=== PATIENT | female | born 1995 | race Caucasian/White ===

== ENCOUNTER 2016-08-06 21:34 | Inpatient (IN) | payer OTHER ==
[~2016-08-06] VITALS: Ht 154.9 cm; Wt 53.0 kg
[2016-08-06 22:06] LABS: BASOPHILS # (AUTO) 0.08 K/uL (0.00-0.20); BASOPHILS % (AUTO) 0.5 % (0.0-2.0); EOSINOPHILS # (AUTO) 0.06 K/uL (0.00-0.70); EOSINOPHILS % (AUTO) 0.33 % (1.0-6.0); HEMATOCRIT 39.4 % (36-46); LYMPHOCYTES # (AUTO) 3.9 K/uL (1.0-4.8); LYMPHOCYTES % (AUTO) 21.7 % (22.0-44.0); MEAN CORPUSCULAR HEMOGLOBIN 29.5 pg (26.0-34.0); MEAN CORPUSCULAR HGB CONC 32.9 G/dL (31.0-37.0); MEAN CORPUSCULAR VOLUME 90 fL (80-100); MONOCYTES # (AUTO) 1.2 K/uL (0.1-1.0); MONOCYTES % (AUTO) 6.7 % (2.0-9.0); NEUTROPHILS # (AUTO) 12.7 K/uL (1.8-7.7); NEUTROPHILS % (AUTO) 70.9 % (40.0-70.0); PLATELET COUNT (AUTO) 221 K/uL (150-450); RED BLOOD CELL COUNT(AUTO) 4.39 MIL/uL (4.00-5.20); RED CELL DISTRIBUTION WIDTH 12.8 % (11.5-14.5)
[2016-08-06 22:20] LABS: APPEARANCE,URINE CLEAR (CLEAR); GLUCOSE, URINE (UA) NEGATIVE (NEGATIVE); KETONES,URINE NEGATIVE (NEGATIVE); LEUKOCYTE ESTERASE ,URINE NEGATIVE (NEGATIVE); OCCULT BLOOD,URINE NEGATIVE (NEGATIVE); PROTEIN,URINE NEGATIVE (NEGATIVE)
[2016-08-06 22:21] LABS: ADD UA MICROSCOPIC NO
[2016-08-06 22:25] LABS: ANION GAP 7 mmol/L (8-16); CARBON DIOXIDE 27 mmol/L (22-29); CHLORIDE 102 mmol/L (98-107); CREATININE 0.71 mg/dL (0.60-1.30); GLOMERULAR FILTR. RATE CALC > 60 mL/min (>60); POTASSIUM 3.8 mmol/L (3.5-5.1); SODIUM SERUM 136 mmol/L (136-145); UREA NITROGEN, BLOOD 11 mg/dL (7-18)
[2016-08-06 22:32] LABS: ALANINE AMINOTRANSFERASE 22 U/L (12-78); ALBUMIN 4.4 g/dL (3.4-5.0); ASPARTATE AMINOTRANSFERASE 16 U/L (15-37); BILIRUBIN,TOTAL 0.4 mg/dL (0.1-1.0)
[2016-08-06] MEDS ORDERED: MORPHINE SULFATE 4 MG/ML SYRINGE IVP ONE ×2 (23:00→23:45)
[2016-08-06] MEDS ORDERED: ONDANSETRON HCL 4 MG/2 ML VIAL IVP ONE (23:00)
[2016-08-06] MEDS ORDERED: BARIUM SULFATE 0.1% SUSPENSION 450 ML BOTTLE PO ONE (23:00)
[2016-08-06] MEDS ORDERED: IOVERSOL 350 MG/ML 100 ML VIAL ONE (23:45)
[2016-08-06] MEDS ORDERED: SODIUM CHLORIDE 0.9% 100 ML ONE (23:45)
[2016-08-07] MEDS ORDERED: SODIUM CHLORIDE 0.9% 1,000 ML IV ONE ×2 (03:15→10:30)
[2016-08-07] MEDS ORDERED: PIPERACILLIN/TAZO 3.375 GM/D5W 50 ML IV ONE (03:15)
[2016-08-07] MEDS ORDERED: LIDOCAINE HCL 2% 5 ML JELLY TP ONE (03:15)
[2016-08-07] MEDS ORDERED: ONDANSETRON HCL 4 MG/2 ML VIAL IVP PRN ×2 (03:15→07:30)
[2016-08-07] MEDS ORDERED: MORPHINE SULFATE 4 MG/ML SYRINGE IVP PRN (03:15)
[2016-08-07] MEDS ORDERED: 0.9% SODIUM CHLORIDE 10 ML SYRINGE IVP PRN ×2 (03:15→07:30)
[2016-08-07 03:52] VITALS: BP 119/70
[2016-08-07 08:02] VITALS: BP 118/75
[2016-08-07] MEDS: PIPERACILLIN/TAZO 3.375 GM/D5W 50 ML IV SCH ×3 (08:39→19:43)
[2016-08-07] MEDS ORDERED: PANTOPRAZOLE SODIUM 40 MG/VIAL IVP SCH (09:00)
[2016-08-07] MEDS ORDERED: GUM MASTIC/STORAX/MSAL/ALCOHOL LIQUID 0.67 ML VIAL TP ONE (09:35)
[2016-08-07] MEDS ORDERED: SODIUM CL IRRIG SOLN BAG 3,000 ML IRRIG ONE (09:36)
[2016-08-07] MEDS ORDERED: MEPERIDINE-PF 25 MG/ML SYRINGE IVP PRN (10:00)
[2016-08-07] MEDS ORDERED: RINGERS SOLUTION,LACTATED 1,000 ML IV ONE (10:00)
[2016-08-07] MEDS ORDERED: HYDROmorphone 2 MG/ML SYRINGE IVP PRN (10:00)
[2016-08-07] MEDS ORDERED: FentaNYL CITRATE-PF 100 MCG/2 ML VIAL IVP PRN (10:00)
[2016-08-07] MEDS: BUPIVACAINE 0.25%/EPI 1:200,000/PF 10 ML VIAL ONE ×2 (10:25→10:43)
[2016-08-07] MEDS ORDERED: KETOROLAC TROMETHAMINE 30 MG/ML VIAL IVP PRN (11:30)
[2016-08-07] MEDS ORDERED: ACETAMINOPHEN 500 MG TABLET PO PRN (11:30)
[2016-08-07] MEDS ORDERED: HYDROmorphone 2 MG/ML SYRINGE IM PRN (11:30)
[2016-08-07] MEDS ORDERED: HYDROCODONE/ACETAMINOPHEN 5-325 MG TABLET PO PRN (11:30)
[2016-08-07] MEDS ORDERED: DEXAMETHASONE SOD PHOS 4 MG/ML VIAL IVP ONE (12:00)
[2016-08-07] MEDS ORDERED: FentaNYL CITRATE-PF 100 MCG/2 ML VIAL IVP ONE (12:00)
[2016-08-07] MEDS ORDERED: PROPOFOL 1% 20 ML VIAL IVP ONE (12:00)
[2016-08-07] MEDS ORDERED: METOCLOPRAMIDE HCL 5 MG/ML 2 ML VIAL IVP ONE (12:00)
[2016-08-07] MEDS ORDERED: KETOROLAC TROMETHAMINE 60 MG/2 ML VIAL IM ONE (12:00)
[2016-08-07] MEDS ORDERED: GLYCOPYRROLATE 0.2 MG/ML VIAL IM ONE (12:00)
[2016-08-07] MEDS ORDERED: ROCURONIUM BROMIDE 10 MG/ML 5 ML VIAL IVP ONE (12:00)
[2016-08-07] MEDS ORDERED: SUCCINYLCHOLINE CHLORIDE 20 MG/ML 10 ML VIAL IVP ONE (12:00)
[2016-08-07] MEDS ORDERED: LIDOCAINE HCL/PF 2% 5 ML VIAL INJ ONE (12:00)
[2016-08-07] MEDS ORDERED: MIDAZOLAM HCL 2 MG/2 ML VIAL IVP ONE (12:00)
[2016-08-07] MEDS: POTASSIUM CHL 20 MEQ/D5LR 1,000 ML IV SCH (12:39)
[2016-08-07 15:47] VITALS: BP 142/79
[2016-08-07 18:59] VITALS: BP 129/51
[2016-08-07] MEDS: FAMOTIDINE 20 MG TABLET PO SCH (19:43)
[2016-08-07] MEDS: OXYGEN THERAPY IH SCH (20:00)
[2016-08-08] VITALS: BP 109/55
[2016-08-08] MEDS: PIPERACILLIN/TAZO 3.375 GM/D5W 50 ML IV SCH ×2 (01:46→08:36)
[2016-08-08] MEDS: POTASSIUM CHL 20 MEQ/D5LR 1,000 ML IV SCH (01:46)
[2016-08-08 04:10] VITALS: BP 105/51
[2016-08-08 06:34] LABS: BASOPHILS # (AUTO) 0.01 K/uL (0.00-0.20); EOSINOPHILS % (AUTO) 0.01 % (1.0-6.0); HEMATOCRIT 32.2 % (36-46); HEMOGLOBIN 10.6 g/dL (12.0-16.0); LYMPHOCYTES # (AUTO) 1.5 K/uL (1.0-4.8); LYMPHOCYTES % (AUTO) 7.9 % (22.0-44.0); MEAN CORPUSCULAR HEMOGLOBIN 30.1 pg (26.0-34.0); MEAN CORPUSCULAR VOLUME 91 fL (80-100); MONOCYTES # (AUTO) 1.2 K/uL (0.1-1.0); MONOCYTES % (AUTO) 6.3 % (2.0-9.0); NEUTROPHILS # (AUTO) 16.4 K/uL (1.8-7.7); PLATELET COUNT (AUTO) 157 K/uL (150-450); RED BLOOD CELL COUNT(AUTO) 3.54 MIL/uL (4.00-5.20); RED CELL DISTRIBUTION WIDTH 12.2 % (11.5-14.5); WHITE BLOOD COUNT (AUTO) 19.1 K/uL (4.5-11.0)
[2016-08-08 06:55] LABS: NEUTROPHILS % (AUTO) 85.8 % (40.0-70.0)
[2016-08-08 07:04] LABS: ANION GAP 7 mmol/L (8-16); CALCIUM, TOTAL 8.1 mg/dL (8.8-10.5); CARBON DIOXIDE 26 mmol/L (22-29); CHLORIDE 104 mmol/L (98-107); CREATININE 0.56 mg/dL (0.60-1.30); GLOMERULAR FILTR. RATE CALC > 60 mL/min (>60); POTASSIUM 3.7 mmol/L (3.5-5.1); SODIUM SERUM 137 mmol/L (136-145); UREA NITROGEN, BLOOD 6 mg/dL (7-18)
[2016-08-08 07:35] VITALS: BP 96/55
[2016-08-08] MEDS: OXYGEN THERAPY IH SCH (08:00)
[2016-08-08] MEDS ORDERED: NORCO 5/325 PO (08:24)
[2016-08-08] MEDS: FAMOTIDINE 20 MG TABLET PO SCH (08:36)
== END 2016-08-08 09:25 | disposition home or self-care (01) | DRG 710 ==
LOC: EMS 21:37 → 6N 08-07 03:00
PROVIDERS: ADMIT Internal Medicine; ATTEND Internal Medicine
PROC: 0DTJ4ZZ Resection of Appendix, Percutaneous Endoscopic Approach (ICD-10-PCS; principal; 2016-08-07 10:25)
DX: A41.9 Sepsis, unspecified organism (principal); K35.80 Unspecified acute appendicitis
CPT/HCPCS: 74177; 87040; 87081; 88304; 96365; 96375; 99285; C9113; J0330; J1100; J1885; J2250; J2270; J2405; J2543; J2704; J2765; J3010; J3480; J3490; J7030; J7050; J7120